=== PATIENT | female | born 1970 | race Caucasian/White ===

== ENCOUNTER 2022-01-10 12:14 | Emergency (ER) | payer OTHER ==
--- OUTSIDE RECORDS SUMMARY | 2022-01-10 12:43 | XMS REPORT | Continuity of Care Document ---
:1970 Author Organization [facility] t Address [address] [place] [address] [place] [id number] Care Team Providers Name Role Phone Unavailable Unavailable Unavailable Payers Payer Name Policy Type Policy Number Effective Date Expiration Date S ource Problems This patient has no known problems. Allergies, Adverse Reactions, Alerts This patient has no known allergies or adverse reactions. Medications This patient has no known medications. Procedures This patient has no known procedures. Encounters Start End Encounter Admission Attending Care Care Encounter Source Date/Time Date/Time Type Type Clinicians Facility Department ID 2020-11-22 2020-11-22 Outpatient PRIV PRIV [id number] [facility] 00:00:00 00:00:00 [id number] Medica l Results This patient has no known results.
--- NOTE | 2022-01-10 12:51 | ER ---
Nurse's Notes [facility] Name: Alma Long Age: 51 yrs Sex: Female : 1970 Arrival Date: 01/10/2022 Time: 12:20 Bed 24 Private MD: Diagnosis: Encounter for a Medication Refill Presentation: 01/10 12:24 Chief complaint: Patient states: Out of Synthroid for 3 weeks. Synthroid 150 MCG PO ll1 daily. Coronavirus screen: Vaccine status: Patient reports receiving the 2nd dose of the covid vaccine. Client denies travel out of the [place] in the last 14 days. At this time, the client does not indicate any symptoms associated with coronavirus-19. Ebola Screen: Patient denies travel to an Ebola-affected area in the 21 days before illness onset. Initial Sepsis Screen: Does the patient meet any 2 criteria? No. Patient's initial sepsis screen is negative. Does the patient have a suspected source of infection? No. Patient's initial sepsis screen is negative. Risk Assessment: Do you want to hurt yourself or someone else? Patient reports no desire to harm self or others. Onset of symptoms. 12:24 Method Of Arrival: Ambulatory ll1 12:24 Acuity: ELISA 5 ll1 Triage Assessment: 12:43 General: Appears in no apparent distress. Behavior is cooperative, appropriate for age. ll1 General: needs Synthroid RX. Pain: Denies pain. Historical: - Allergies: 12:43 No Known Allergies; ll1 - PMHx: 12:43 Hypothyroidism; ll1 - PSHx: 12:43 "tubal ligation"; ll1 - Immunization history:: Client reports receiving the 2nd dose of the Covid vaccine. - Social history:: Smoking status: Patient reports the use of cigarette tobacco products, smokes one-half pack cigarettes per day. Screenin:45 Abuse screen: Denies threats or abuse. Nutritional screening: No deficits noted. em6 Tuberculosis screening: No symptoms or risk factors identified. Fall Risk Total Arzola Fall Scale indicates No Risk (0-24 pts). Assessment: 12:44 General: Appears comfortable, Behavior is cooperative. Pain: Denies pain. Neuro: em6 Falcon Agitation-Sedation Scale (RASS): 0 - Alert and Calm Reports feeling tired all the time and general weakness. Cardiovascular: Heart tones present Patient's skin is warm and dry. Respiratory: Airway is patent Respiratory effort is even, unlabored, Respiratory pattern is regular, symmetrical, Breath sounds are clear bilaterally. GI: No signs and/or symptoms were reported involving the gastrointestinal system. : No signs and/or symptoms were reported regarding the genitourinary system. EENT: No signs and/or symptoms were reported regarding the EENT system. Derm: No signs and/or symptoms reported regarding the dermatologic system. Musculoskeletal: Circulation, motion, and sensation intact. Range of motion: intact in all extremities. Vital Signs: 12:24 BP 160 / 107; Pulse 82; Resp 17; Pulse Ox 100% on R/A; Weight 70.31 kg (M); Height 5 ll1 ft. 0 in. (152.40 cm); Pain 0/10; 12:44 Temp 98.9; em6 12:24 Body Mass Index 30.27 (70.31 kg, 152.40 cm) ll1 ED Course: 12:20 Patient arrived in ED. rg4 12:23 Patient not in lobby or restroom when called into triage for eval. ll1 12:26 Gustabo Villalta PA is PHCP. jmm 12:26 Norman Gipson DO is Attending Physician. jmm 12:26 Patient still not in lobby. ll1 12:37 Gustabo Villalta PA is PHCP. jmm 12:37 Norman Gipson DO is Attending Physician. jmm 12:39 Kristine Paniagua, RN is Primary Nurse. em6 12:43 Triage completed. ll1 12:45 Arm band placed on. em6 12:45 Bed in low position. Call light in reach. Side rails up X2. Pulse ox on. NIBP on. Warm em6 blanket given. 13:10 No provider procedures requiring assistance completed. Patient did not have IV access em6 during this emergency room visit. Administered Medications: 12:50 Drug: levothyroxine 150 mcg Route: PO; em6 13:10 Follow up: Response: No adverse reaction em6 Medication: 12:45 VIS not applicable for this client. em6 Outcome: 12:51 Discharge ordered by . lorena 13:11 Discharged to home ambulatory. em6 13:11 Condition: stable 13:11 Discharge instructions given to patient, Instructed on discharge instructions, follow up and referral plans. medication usage, Demonstrated understanding of instructions, follow-up care, medications, Prescriptions given X 1. 13:11 Patient left the ED. em6 Signatures: Gustabo Villalta PA PA jmm Garcia, Rubi rg4 Julián Mueller, RN RN ll1 Kristine Paniagua RN RN em6
--- NOTE | 2022-01-10 12:51 | EDPHYS ---
Physician Documentation [facility] Name: Alma Long Age: 51 yrs Sex: Female : 1970 Arrival Date: 01/10/2022 Time: 12:20 Bed 24 Private MD: ED Physician Norman Gipson HPI: 01/10 12:38 This 51 yrs old Female presents to ER via Ambulatory with complaints of Doesn't Feel jmm Right, Medication Refill. 12:38 The patient presents to the emergency department requesting refill(s) for: synthroid. jmm The patient has experienced a previous episode. Patient states she has been out of synthroid for approx 3 weeks. Complains of fatigue, body aches. . Historical: - Allergies: 12:43 No Known Allergies; ll1 - PMHx: 12:43 Hypothyroidism; ll1 - PSHx: 12:43 "tubal ligation"; ll1 - Immunization history:: Client reports receiving the 2nd dose of the Covid vaccine. - Social history:: Smoking status: Patient reports the use of cigarette tobacco products, smokes one-half pack cigarettes per day. ROS: 12:38 Cardiovascular: Negative for chest pain, palpitations, and edema, Respiratory: Negative jmm for shortness of breath, cough, wheezing, and pleuritic chest pain. 12:38 Constitutional: Positive for body aches, fatigue. 12:38 All other systems are negative. Exam: 12:38 Constitutional: This is a well developed, well nourished patient who is awake, alert, jmm and in no acute distress. Head/Face: atraumatic. Eyes: EOMI, no conjunctival erythema appreciated ENT: Moist Mucus Membranes Neck: Trachea midline, Supple Chest/axilla: Normal chest wall appearance and motion. Cardiovascular: Regular rate and rhythm. No edema appreciated Respiratory: Normal respirations, no respiratory distress appreciated Abdomen/GI: Non distended Back: Normal ROM Skin: General appearance color normal MS/ Extremity: Moves all extremities, no obvious deformities appreciated, no edema noted to the lower extremities Neuro: Awake and alert Psych: Behavior is normal, Mood is normal, Patient is cooperative and pleasant Vital Signs: 12:24 BP 160 / 107; Pulse 82; Resp 17; Pulse Ox 100% on R/A; Weight 70.31 kg (M); Height 5 ll1 ft. 0 in. (152.40 cm); Pain 0/10; 12:44 Temp 98.9; em6 12:24 Body Mass Index 30.27 (70.31 kg, 152.40 cm) ll1 MDM: 12:38 Patient medically screened. [facility] 12:38 Data reviewed: vital signs, nurses notes. [facility] 12:49 Counseling: I had a detailed discussion with the patient and/or guardian regarding: the [facility] historical points, exam findings, and any diagnostic results supporting the discharge/admit diagnosis, the need for outpatient follow up, to return to the emergency department if symptoms worsen or persist or if there are any questions or concerns that arise at home. Refusal of service: The patient/guardian displays adequate decision making capability and despite a detailed discussion of alternatives, benefits, risks, and consequences refuses: all lab tests. Administered Medications: 12:50 Drug: levothyroxine 150 mcg Route: PO; em6 13:10 Follow up: Response: No adverse reaction em6 Disposition: 15:13 Co-signature as Attending Physician, Norman Gipson DO I was immediately available on-site ms3 in the Emergency Department for consultation in the care of the patient. Disposition Summary: 01/10/22 12:51 Discharge Ordered Location: Home [facility] Condition: Stable [facility] Diagnosis - Encounter for a Medication Refill [facility] Followup: jm - With: Private Physician - When: As needed - Reason: Recheck today's complaints, Continuance of care, Re-evaluation by your physician Discharge Instructions: - Discharge Summary Sheet [facility] - Hypothyroidism [facility] Forms: - Medication Reconciliation Form [facility] - Thank You Letter [facility] - Antibiotic Education [facility] - Prescription Opioid Use [facility] Prescriptions: - Synthroid 150 mcg Oral tablet - take 1 tablet by ORAL route once daily; 30 tablet; Refills: 0, Product [facility] Selection Permitted Signatures: Gustabo Villalta PA PA jmm Lewis, Lynsay RN RN ll1 Norman Gipson DO DO ms3 Kristine Paniagua RN RN em6
[2022-01-10] MEDS ORDERED: LEVOTHYROXINE SOD 0.1 MG TAB PO ONE (13:00)
[2022-01-10] MEDS ORDERED: LEVOTHYROXINE SOD 0.05 MG TABLET PO ONE (13:00)
[2022-01-10 13:20] VITALS: BP 160/107; O2SAT 100
[2022-01-10 13:21] VITALS: TEMP 98.9
== END 2022-01-10 13:11 | disposition home or self-care (01) ==
LOC: ER 12:14
DX: Z76.0 Encounter for issue of repeat prescription (principal)
CPT/HCPCS: 99283